=== PATIENT | male | born 1980 | race Caucasian/White ===

== ENCOUNTER 2017-10-30 17:44 | Emergency (ER) | payer MEDICAID ==
[2017-10-30 17:51] VITALS: RESP 18
[2017-10-30] MEDS ORDERED: KETOROLAC 30 MG/1 ML SDV IM ONE (18:46)
[2017-10-30] MEDS ORDERED: OXYCODONE/APAP 5/325 TAB PO ONE (18:47)
[2017-10-30] MEDS ORDERED: OXYCODONE/APAP 5/325MG PREPACK#4 BTL TAKEHOME ONE (18:47)
--- NOTE | 2017-10-30 18:51 | EDPHY ---
H & P Time Seen by Provider: 10/30/17 18:03 HPI/ROS: HPI Lower back pain with sciatica. 37-year-old male by private vehicle with his . This patient has a history of chronic lower back pain secondary to a sacroiliitis on the left side. He has referred pain to his knee from this. He reports that he was at a pain management/neurologist office today. He reports he had some type of a diagnostic injection. He reports that his pain has been continuous through this week. He reports he is currently out of his Percocet. He states that his primary care physician prescribes him the Percocet and this medication has to be mailed to him. He reports that he should have the medication within the next day or 2 but does not have it currently. He is asking for pain medication. He denies any new numbness or weakness. This is his typical chronic lower back pain with sciatica. No fever. No abdominal pain. No bowel or bladder incontinence. He denies IV drug use. No history of trauma. No other red flags. ROS: Constitutional: No fever, no chills. No weakness. Musculoskeletal: As above. No neck pain. No myalgias or arthralgias. Skin: No rashes. Neurological: No focal weakness or altered sensation. Past medical history: As above. Social history: Nonsmoker. Here with his . No alcohol. Physical Exam: General Appearance: Alert, he appears uncomfortable. This patient is responding to questions appropriately and in full sentences. This patient appears well-hydrated and well-nourished. Eyes: Pupils equal and round no pallor or injection. No lid edema, erythema or injection. Back exam: No midline thoracic, lumbar, sacral tenderness on palpation. He does have some tenderness on palpation over the left mid sacroiliac joint. No soft tissue changes. Specifically no ecchymosis, no warmth, no erythema. No rashes noted. He has a negative same side and cross-eyed straight leg raise test. He is neurologically intact in all myotomes in dermatomes of the bilateral lower extremities. Gastrointestinal: Abdomen is soft and nontender, no masses, bowel sounds normal. No focal tenderness at McBurney's point. No Duffy sign. Neurological: Motor sensory function is grossly intact. Cranial nerves are normal. Gait is normal. Skin: Warm and dry, no rashes. Musculoskeletal: Neck is supple and nontender. Extremities are symmetrical. All joints range without pain or impingement. Psychiatric: No agitation. No depression. Database: EKG: Imaging: Procedures: Emergency department course: He was mildly tachycardic in triage. Vital signs otherwise unremarkable. Afebrile. He has no contraindications to NSAIDs. No renal dysfunction. No history of peptic ulcer disease. He will be given a 1 time intramuscular dose of Toradol as well as 2 Percocet tablets in the emergency department for his pain. On re-evaluation, he is much more comfortable. His tachycardia has resolved. I agreed to send him home with a take-home pack of Percocet which includes 4 tablets to get him through the night. He will then follow up with his primary care physician to ensure that he gets his pain medication tomorrow. He is in agreement with this plan. Return to emergency department precautions were reviewed with him. All of his questions were answered. He was discharged in good condition. Differential Diagnosis: The differential diagnosis on this patient includes but is not limited to sacroiliac joint dysfunction and pain on the left side, sciatica. Acute intervertebral disc herniation, cauda equina syndrome, epidural compression syndrome, malignancy, epidural abscess, AAA unlikely. This represents a partial list of diagnoses considered. These considerations are based on history , physical exam, past history, reassessment and diagnostic testing. Smoking Status: Current some day smoker Constitutional: Initial Vital Signs Heart Rate 113 H 10/30/17 17:47 Respiratory Rate 18 10/30/17 17:47 Blood Pressure 144/90 H 10/30/17 17:47 O2 Sat (%) 98 10/30/17 17:47 O2 Delivery Mode Room Air Allergies/Adverse Reactions: No Known Allergies Allergy (Unverified 10/30/17 17:52) Home Medications: Medication Instructions Recorded GABAPENTIN 10/30/17 Percocet 5-325 mg Tablet 10/30/17 Medical Decision Making - Data Points Medications Given: Discontinued Medications Ketorolac Tromethamine (Toradol) 60 mg IM EDNOW ONE Stop: 10/30/17 18:47 Last Admin: 10/30/17 18:54 Dose: 60 mg Oxycodone/Acetaminophen (Percocet 5/325mg Prepack#4) 1 btl TAKEHOME EDNOW ONE Stop: 10/30/17 18:48 Last Admin: 10/30/17 18:57 Dose: 1 btl Oxycodone/Acetaminophen (Percocet 5/325) 2 tab PO EDNOW ONE Stop: 10/30/17 18:48 Last Admin: 10/30/17 19:02 Dose: 2 tab Departure - Departure Disposition: Home, Routine, Self-Care Clinical Impression: Sciatica, Lower back pain Condition: Good Instructions: Sciatica (ED) Additional Instructions: Read and follow provided instructions. Follow-up with your primary care physician tomorrow as discussed for your ongoing pain management needs. [place]/Percocet dosin-2 every 4-6 [address] for [address] not drive on this medication. Return to the emergency department for worsening pain, bowel or bladder incontinence, loss of sensation or weakness in lower extremities, fever or other serious concerns. Referrals: Doctor Not,On Staff, MD [Primary Care Provider] - As per Instructions
[2017-10-30 19:08] VITALS: BP 145/88; PULSE 75; TEMP 98; O2SAT 96
== END 2017-10-30 19:07 | disposition home or self-care (01) ==
LOC: CED 17:44
DX: M54.42 Lumbago with sciatica, left side (principal); F17.200 Nicotine dependence, unspecified, uncomplicated
CPT/HCPCS: J1885